=== PATIENT | male | born 1985 | race Caucasian/White ===

== ENCOUNTER 2017-05-27 12:15 | Emergency (ER) | payer OTHER ==
[~2017-05-27] VITALS: Ht 175.3 cm; Wt 97.8 kg
[2017-05-27 12:17] VITALS: BP 148/91; TEMP 36.8; Ht 175.3 cm; Wt 97.8 kg
[2017-05-27] MEDS ORDERED: CLR10 PO (12:39)
[2017-05-27] MEDS ORDERED: NXM/40 PO (12:39)
--- NOTE | 2017-05-27 13:06 | DIAGNOSTIC IMAGING REPORT ---
LEFT SHOULDER 2 VIEWS CLINICAL HISTORY: Fall with left shoulder pain. FINDINGS: 2 views of the left shoulder are obtained. No prior studies are available for comparison at the time of dictation. The skeletal structures are well mineralized. No fracture or dislocation is seen. The glenohumeral and acromioclavicular joints appear preserved. The overlying soft tissues are within normal limits. The imaged left lung parenchyma appears clear. IMPRESSION: There is no radiographic evidence of left shoulder fracture or dislocation. Electronically signed by: Paras Fajardo M.D. 05/27/2017 1:04 PM Dictated Date/Time: 05/27/2017 1:04 PM
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
[2017-05-27] MEDS ORDERED: HYDR-5688 PO (13:35)
[2017-05-27] MEDS ORDERED: NORCO 5/325MG HOME PACK PO STA (13:35)
[2017-05-27 14:20] VITALS: PULSE 77; O2SAT 98
== END 2017-05-27 14:18 | disposition home or self-care (01) ==
LOC: C.EDB 12:16 → C.EDD 14:18
DX: S43.102A Unspecified dislocation of left acromioclavicular joint, initial encounter (principal); V00.141A Fall from scooter (nonmotorized), initial encounter; Y92.096 Garden or yard of other non-institutional residence as the place of occurrence of the external cause; Z79.899 Other long term (current) drug therapy